=== PATIENT | female | born 1975 | race Caucasian/White ===

== ENCOUNTER 2017-09-05 13:58 | Emergency (ER) | payer MEDICAID ==
[~2017-09-05] VITALS: Ht 162.6 cm; Wt 102.0 kg
[~2017-09-05 13:58] MED LIST: PRENATAL VIT; ZOFRAN
[2017-09-05] MEDS ORDERED: NAPR220C15 PO (14:13)
[2017-09-05] MEDS ORDERED: IBUPROFEN 800MG TABLET PO ONE (14:15)
[2017-09-05 17:35] LABS: BASOPHILS % 0.5 % (0.0-2.0); EOSINOPHILS % 2.8 % (0.0-5.0); HEMATOCRIT. 36.9 % (36.0-48.0); HEMOGLOBIN. 12.8 g/dL (12.0-16.0); LYMPHOCYTES % 29.9 % (20.0-50.0); MEAN CORPUSCULAR HEMOGLOBIN 29.8 pg (28.0-32.0); MEAN PLATELET VOLUME 7.3 fl (7.4-10.4); MONOCYTES % 7.3 % (2.0-8.0); NEUTROPHILS % 59.5 % (40.0-76.0); PLATELET 278 x1000/uL (130-400); RED BLOOD CELL COUNT 4.28 mill/uL (4.2-5.4); RED CELL DISTRIBUTION WIDTH 13.4 % (11.6-14.6)
[2017-09-05 17:41] LABS: PROTHROMBIN TIME 10.5 sec (9.4-11.6)
[2017-09-05 17:44] LABS: CHLORIDE 107 mEq/L (98-107)
[2017-09-05 18:23] VITALS: BP 121/65
== END 2017-09-05 18:25 | disposition home or self-care (01) ==
LOC: ER 14:48
DX: R07.9 Chest pain, unspecified (principal)
CPT/HCPCS: 36415; 71045; 80053; 81025; 83880; 84484; 85025; 85610; 93005; 99285; Z7610